=== PATIENT | male | born 1950 | race Caucasian/White ===

== ENCOUNTER 2016-08-11 07:52 | Outpatient (CLI) | payer MEDICARE, OTHER ==
[2015-11-22 18:54] VITALS: BP 142/89
== END 2016-08-11 07:53 ==
LOC: LAB 07:52
PROVIDERS: ATTEND Internal Medicine Interventional Cardiology
DX: I48.0 Paroxysmal atrial fibrillation (principal)
CPT/HCPCS: 36415; 85610

== ENCOUNTER 2016-08-25 07:51 | Outpatient (CLI) | payer MEDICARE, OTHER ==
[2015-11-22 18:54] VITALS: BP 142/89
== END 2016-08-25 08:00 ==
LOC: LAB 07:51
PROVIDERS: ATTEND Internal Medicine Interventional Cardiology
DX: Z51.81 Encounter for therapeutic drug level monitoring (principal); Z79.01 Long term (current) use of anticoagulants; I48.0 Paroxysmal atrial fibrillation
CPT/HCPCS: 36415; 85610

== ENCOUNTER 2016-09-08 09:02 | Outpatient (CLI) | payer MEDICARE, OTHER ==
[2015-11-22 18:54] VITALS: BP 142/89
== END 2016-09-08 09:03 ==
LOC: LAB 09:02
PROVIDERS: ATTEND Internal Medicine Interventional Cardiology
DX: I48.0 Paroxysmal atrial fibrillation (principal)
CPT/HCPCS: 36415; 85610

== ENCOUNTER 2016-09-22 08:02 | Outpatient (CLI) | payer MEDICARE, OTHER ==
[2015-11-22 18:54] VITALS: BP 142/89
== END 2016-09-22 08:03 ==
LOC: LAB 08:02
PROVIDERS: ATTEND Internal Medicine Interventional Cardiology
DX: I48.0 Paroxysmal atrial fibrillation (principal)
CPT/HCPCS: 36415; 85610

== ENCOUNTER 2016-10-13 08:38 | Outpatient (CLI) | payer MEDICARE, OTHER ==
[2015-11-22 18:54] VITALS: BP 142/89
== END 2016-10-13 08:40 ==
LOC: LAB 08:38
PROVIDERS: ATTEND Internal Medicine Interventional Cardiology
DX: Z51.81 Encounter for therapeutic drug level monitoring (principal); Z79.01 Long term (current) use of anticoagulants; I48.0 Paroxysmal atrial fibrillation
CPT/HCPCS: 36415; 85610

== ENCOUNTER 2016-11-10 08:39 | Outpatient (CLI) | payer MEDICARE, OTHER ==
[2015-11-22 18:54] VITALS: BP 142/89
== END 2016-11-10 08:40 ==
LOC: LAB 08:39
PROVIDERS: ATTEND Internal Medicine Interventional Cardiology
DX: Z51.81 Encounter for therapeutic drug level monitoring (principal); Z79.01 Long term (current) use of anticoagulants; I48.0 Paroxysmal atrial fibrillation
CPT/HCPCS: 36415; 85610

== ENCOUNTER 2016-12-08 08:26 | Outpatient (CLI) | payer MEDICARE, OTHER ==
[2015-11-22 18:54] VITALS: BP 142/89
== END 2016-12-08 08:27 ==
LOC: LAB 08:26
PROVIDERS: ATTEND Internal Medicine Interventional Cardiology
DX: Z79.01 Long term (current) use of anticoagulants (principal); Z51.81 Encounter for therapeutic drug level monitoring; I48.0 Paroxysmal atrial fibrillation
CPT/HCPCS: 36415; 85610

== ENCOUNTER 2017-01-12 09:34 | Outpatient (CLI) | payer MEDICARE, OTHER ==
[2015-11-22 18:54] VITALS: BP 142/89
== END 2017-01-12 09:35 ==
LOC: LAB 09:34
PROVIDERS: ATTEND Anesthesiology
DX: I48.0 Paroxysmal atrial fibrillation (principal)
CPT/HCPCS: 36415; 85610

== ENCOUNTER 2017-02-06 08:04 | Outpatient (CLI) | payer MEDICARE, OTHER ==
[2015-11-22 18:54] VITALS: BP 142/89
[2017-02-06 08:56] LABS: eGFR (African) > 60; eGFR (Non-African) > 60
== END 2017-02-06 08:05 ==
LOC: LAB 08:04
PROVIDERS: ATTEND Internal Medicine Interventional Cardiology
DX: I48.0 Paroxysmal atrial fibrillation (principal)
CPT/HCPCS: 36415; 80048; 85610

== ENCOUNTER 2017-03-16 08:54 | Outpatient (CLI) | payer MEDICARE, OTHER ==
[2015-11-22 18:54] VITALS: BP 142/89
== END 2017-03-16 09:07 ==
LOC: LAB 08:54
PROVIDERS: ATTEND Internal Medicine Interventional Cardiology
DX: I48.0 Paroxysmal atrial fibrillation (principal)
CPT/HCPCS: 36415; 85610

== ENCOUNTER 2017-04-19 07:57 | Outpatient (CLI) | payer MEDICARE, OTHER ==
[2015-11-22 18:54] VITALS: BP 142/89
== END 2017-04-19 08:00 ==
LOC: LAB 07:57
PROVIDERS: ATTEND Internal Medicine Interventional Cardiology
DX: I48.0 Paroxysmal atrial fibrillation (principal)
CPT/HCPCS: 36415; 85610

== ENCOUNTER 2017-04-26 07:49 | Outpatient (CLI) | payer MEDICARE, OTHER ==
[2015-11-22 18:54] VITALS: BP 142/89
== END 2017-04-26 07:50 ==
LOC: LAB 07:49
PROVIDERS: ATTEND Internal Medicine Interventional Cardiology
DX: I48.0 Paroxysmal atrial fibrillation (principal)
CPT/HCPCS: 36415; 85610

== ENCOUNTER 2017-05-24 07:44 | Outpatient (CLI) | payer MEDICARE, OTHER ==
[2015-11-22 18:54] VITALS: BP 142/89
== END 2017-05-24 07:50 ==
LOC: LAB 07:44
PROVIDERS: ATTEND Internal Medicine Interventional Cardiology
DX: I48.0 Paroxysmal atrial fibrillation (principal)
CPT/HCPCS: 36415; 85610

== ENCOUNTER 2017-05-31 07:51 | Outpatient (CLI) | payer MEDICARE, OTHER ==
[2015-11-22 18:54] VITALS: BP 142/89
== END 2017-05-31 07:52 ==
LOC: LAB 07:51
PROVIDERS: ATTEND Internal Medicine Interventional Cardiology
DX: I48.0 Paroxysmal atrial fibrillation (principal)
CPT/HCPCS: 36415; 85610

== ENCOUNTER 2017-06-07 07:53 | Outpatient (CLI) | payer MEDICARE, OTHER ==
[2015-11-22 18:54] VITALS: BP 142/89
== END 2017-06-07 07:54 ==
LOC: LAB 07:53
PROVIDERS: ATTEND Internal Medicine Interventional Cardiology
DX: I48.0 Paroxysmal atrial fibrillation (principal)
CPT/HCPCS: 36415; 85610

== ENCOUNTER 2017-06-19 08:01 | Outpatient (CLI) | payer MEDICARE, OTHER ==
[2015-11-22 18:54] VITALS: BP 142/89
== END 2017-06-19 08:02 ==
LOC: LAB 08:01
PROVIDERS: ATTEND Internal Medicine Interventional Cardiology
DX: I48.0 Paroxysmal atrial fibrillation (principal)
CPT/HCPCS: 36415; 85610

== ENCOUNTER 2017-07-19 08:47 | Outpatient (CLI) | payer MEDICARE, OTHER ==
[2015-11-22 18:54] VITALS: BP 142/89
== END 2017-07-19 08:50 ==
LOC: LAB 08:47
PROVIDERS: ATTEND Internal Medicine Interventional Cardiology
DX: Z79.01 Long term (current) use of anticoagulants (principal)
CPT/HCPCS: 36415; 85610

== ENCOUNTER 2017-08-17 09:01 | Outpatient (CLI) | payer MEDICARE, OTHER ==
[2015-11-22 18:54] VITALS: BP 142/89
== END 2017-08-17 09:02 ==
LOC: LAB 09:01
PROVIDERS: ATTEND Internal Medicine Interventional Cardiology
DX: Z79.01 Long term (current) use of anticoagulants (principal)
CPT/HCPCS: 36415; 85610

== ENCOUNTER 2017-09-13 08:08 | Outpatient (CLI) | payer MEDICARE, OTHER ==
[2015-11-22 18:54] VITALS: BP 142/89
== END 2017-09-13 08:10 ==
LOC: LAB 08:08
PROVIDERS: ATTEND Internal Medicine Interventional Cardiology
DX: Z79.01 Long term (current) use of anticoagulants (principal)
CPT/HCPCS: 36415; 85610

== ENCOUNTER 2017-10-11 08:21 | Outpatient (CLI) | payer MEDICARE, OTHER ==
[2015-11-22 18:54] VITALS: BP 142/89
== END 2017-10-11 09:20 ==
LOC: LAB 08:21
PROVIDERS: ATTEND Internal Medicine Interventional Cardiology
DX: Z79.01 Long term (current) use of anticoagulants (principal)
CPT/HCPCS: 36415; 85610

== ENCOUNTER 2017-11-08 08:20 | Outpatient (CLI) | payer MEDICARE, OTHER ==
[2015-11-22 18:54] VITALS: BP 142/89
== END 2017-11-08 08:23 ==
LOC: LAB 08:20
PROVIDERS: ATTEND Internal Medicine Interventional Cardiology
DX: Z79.01 Long term (current) use of anticoagulants (principal)
CPT/HCPCS: 36415; 85610

== ENCOUNTER 2017-11-22 08:28 | Outpatient (CLI) | payer MEDICARE, OTHER ==
[2015-11-22 18:54] VITALS: BP 142/89
== END 2017-11-22 08:30 ==
LOC: LAB 08:28
PROVIDERS: ATTEND Internal Medicine Interventional Cardiology
DX: Z79.01 Long term (current) use of anticoagulants (principal)
CPT/HCPCS: 36415; 85610

== ENCOUNTER 2017-11-29 08:18 | Outpatient (CLI) | payer MEDICARE, OTHER ==
[2015-11-22 18:54] VITALS: BP 142/89
== END 2017-11-29 08:20 ==
LOC: LAB 08:18
PROVIDERS: ATTEND Internal Medicine Interventional Cardiology
DX: Z79.01 Long term (current) use of anticoagulants (principal)
CPT/HCPCS: 36415; 85610

== ENCOUNTER 2017-12-06 08:29 | Outpatient (CLI) | payer MEDICARE, OTHER ==
[2015-11-22 18:54] VITALS: BP 142/89
== END 2017-12-06 08:30 ==
LOC: LAB 08:29
PROVIDERS: ATTEND Internal Medicine Interventional Cardiology
DX: Z79.01 Long term (current) use of anticoagulants (principal)
CPT/HCPCS: 36415; 85610

== ENCOUNTER 2017-12-20 07:54 | Outpatient (CLI) | payer MEDICARE, OTHER ==
[2015-11-22 18:54] VITALS: BP 142/89
== END 2017-12-20 09:56 ==
LOC: LAB 07:54
PROVIDERS: ATTEND Anesthesiology
DX: Z79.01 Long term (current) use of anticoagulants (principal)
CPT/HCPCS: 36415; 85610

== ENCOUNTER 2018-01-03 08:05 | Outpatient (CLI) | payer MEDICARE, OTHER ==
[2015-11-22 18:54] VITALS: BP 142/89
== END 2018-01-03 08:06 ==
LOC: LAB 08:05
PROVIDERS: ATTEND Internal Medicine Interventional Cardiology
DX: Z79.01 Long term (current) use of anticoagulants (principal)
CPT/HCPCS: 36415; 85610

== ENCOUNTER 2018-01-17 08:18 | Outpatient (CLI) | payer MEDICARE, OTHER ==
[2015-11-22 18:54] VITALS: BP 142/89
== END 2018-01-17 08:20 ==
LOC: LAB 08:18
PROVIDERS: ATTEND Internal Medicine Interventional Cardiology
DX: Z79.01 Long term (current) use of anticoagulants (principal)
CPT/HCPCS: 36415; 85610

== ENCOUNTER 2018-02-07 08:11 | Outpatient (CLI) | payer MEDICARE, OTHER ==
[2015-11-22 18:54] VITALS: BP 142/89
== END 2018-02-07 08:13 ==
LOC: LAB 08:11
PROVIDERS: ATTEND Internal Medicine Interventional Cardiology
DX: Z79.01 Long term (current) use of anticoagulants (principal)
CPT/HCPCS: 36415; 85610

== ENCOUNTER 2018-02-21 08:45 | Outpatient (CLI) | payer MEDICARE, OTHER ==
[2015-11-22 18:54] VITALS: BP 142/89
== END 2018-02-21 08:46 ==
LOC: LAB 08:45
PROVIDERS: ATTEND Internal Medicine Interventional Cardiology
DX: Z79.01 Long term (current) use of anticoagulants (principal)
CPT/HCPCS: 36415; 85610

== ENCOUNTER 2018-03-07 08:34 | Outpatient (CLI) | payer MEDICARE, OTHER ==
[2015-11-22 18:54] VITALS: BP 142/89
== END 2018-03-07 08:35 ==
LOC: LAB 08:34
PROVIDERS: ATTEND Internal Medicine Interventional Cardiology
DX: Z79.01 Long term (current) use of anticoagulants (principal)
CPT/HCPCS: 36415; 85610

== ENCOUNTER 2018-03-28 08:22 | Outpatient (CLI) | payer MEDICARE, OTHER ==
[2015-11-22 18:54] VITALS: BP 142/89
== END 2018-03-28 08:23 ==
LOC: LAB 08:22
PROVIDERS: ATTEND Internal Medicine Interventional Cardiology
DX: Z79.01 Long term (current) use of anticoagulants (principal)
CPT/HCPCS: 36415; 85610

== ENCOUNTER 2018-04-11 09:04 | Outpatient (CLI) | payer MEDICARE, OTHER ==
[2015-11-22 18:54] VITALS: BP 142/89
== END 2018-04-11 09:06 ==
LOC: LAB 09:04
PROVIDERS: ATTEND Internal Medicine Interventional Cardiology
DX: Z79.01 Long term (current) use of anticoagulants (principal)
CPT/HCPCS: 36415; 85610

== ENCOUNTER 2018-04-26 09:01 | Outpatient (CLI) | payer MEDICARE, OTHER ==
[2015-11-22 18:54] VITALS: BP 142/89
== END 2018-04-26 09:03 ==
LOC: LAB 09:01
PROVIDERS: ATTEND Internal Medicine Interventional Cardiology
DX: Z79.01 Long term (current) use of anticoagulants (principal)
CPT/HCPCS: 36415; 85610

== ENCOUNTER 2018-05-16 09:35 | Outpatient (CLI) | payer MEDICARE, OTHER ==
[2015-11-22 18:54] VITALS: BP 142/89
== END 2018-05-16 09:36 ==
LOC: LAB 09:35
PROVIDERS: ATTEND Internal Medicine Interventional Cardiology
DX: Z79.01 Long term (current) use of anticoagulants (principal)
CPT/HCPCS: 36415; 85610

== ENCOUNTER 2018-06-14 08:54 | Outpatient (CLI) | payer MEDICARE, OTHER ==
[2015-11-22 18:54] VITALS: BP 142/89
== END 2018-06-14 08:59 | disposition home or self-care (01) ==
LOC: LAB 08:54
PROVIDERS: ATTEND Internal Medicine Interventional Cardiology
DX: Z79.01 Long term (current) use of anticoagulants (principal)
CPT/HCPCS: 36415; 85610

== ENCOUNTER 2018-07-12 08:52 | Outpatient (CLI) | payer MEDICARE, OTHER ==
[2015-11-22 18:54] VITALS: BP 142/89
== END 2018-07-12 14:18 ==
LOC: LAB 08:52
PROVIDERS: ATTEND Internal Medicine Interventional Cardiology
DX: Z79.01 Long term (current) use of anticoagulants (principal); Z51.81 Encounter for therapeutic drug level monitoring
CPT/HCPCS: 36415; 85610

== ENCOUNTER 2018-07-19 08:28 | Outpatient (CLI) | payer MEDICARE, OTHER ==
[2015-11-22 18:54] VITALS: BP 142/89
== END 2018-07-19 08:33 | disposition home or self-care (01) ==
LOC: LAB 08:28
PROVIDERS: ATTEND Internal Medicine Interventional Cardiology
DX: Z79.01 Long term (current) use of anticoagulants (principal); Z51.81 Encounter for therapeutic drug level monitoring
CPT/HCPCS: 36415; 85610

== ENCOUNTER 2018-08-02 09:56 | Outpatient (CLI) | payer MEDICARE, OTHER ==
[2015-11-22 18:54] VITALS: BP 142/89
== END 2018-08-02 10:08 ==
LOC: LAB 09:56
PROVIDERS: ATTEND Internal Medicine Interventional Cardiology
DX: Z79.01 Long term (current) use of anticoagulants (principal); Z51.81 Encounter for therapeutic drug level monitoring
CPT/HCPCS: 36415; 85610

== ENCOUNTER 2018-08-23 08:56 | Outpatient (CLI) | payer MEDICARE, OTHER ==
[2015-11-22 18:54] VITALS: BP 142/89
== END 2018-08-23 08:58 ==
LOC: LAB 08:56
PROVIDERS: ATTEND Internal Medicine Interventional Cardiology
DX: Z79.01 Long term (current) use of anticoagulants (principal)
CPT/HCPCS: 36415; 85610

== ENCOUNTER 2018-08-31 08:57 | Outpatient (CLI) | payer MEDICARE, OTHER ==
[2015-11-22 18:54] VITALS: BP 142/89
== END 2018-08-31 09:00 ==
LOC: LAB 08:57
PROVIDERS: ATTEND Anesthesiology
DX: Z79.01 Long term (current) use of anticoagulants (principal)
CPT/HCPCS: 36415; 85610

== ENCOUNTER 2018-09-12 09:04 | Outpatient (CLI) | payer MEDICARE, OTHER ==
[2015-11-22 18:54] VITALS: BP 142/89
== END 2018-09-12 09:06 ==
LOC: LAB 09:04
PROVIDERS: ATTEND Internal Medicine Interventional Cardiology
DX: Z79.01 Long term (current) use of anticoagulants (principal)
CPT/HCPCS: 36415; 85610

== ENCOUNTER 2018-10-10 08:45 | Outpatient (CLI) | payer MEDICARE, OTHER ==
[2015-11-22 18:54] VITALS: BP 142/89
== END 2018-10-10 08:46 ==
LOC: LAB 08:45
PROVIDERS: ATTEND Internal Medicine Interventional Cardiology
DX: Z79.01 Long term (current) use of anticoagulants (principal)
CPT/HCPCS: 36415; 85610

== ENCOUNTER 2018-11-07 08:37 | Outpatient (CLI) | payer MEDICARE, OTHER ==
[2015-11-22 18:54] VITALS: BP 142/89
== END 2018-11-07 09:15 ==
LOC: LAB 08:37
PROVIDERS: ATTEND Internal Medicine Interventional Cardiology
DX: Z79.01 Long term (current) use of anticoagulants (principal)
CPT/HCPCS: 36415; 85610

== ENCOUNTER 2018-12-12 08:32 | Outpatient (CLI) | payer MEDICARE, OTHER ==
[2015-11-22 18:54] VITALS: BP 142/89
== END 2018-12-12 08:33 ==
LOC: LAB 08:32
PROVIDERS: ATTEND Internal Medicine Interventional Cardiology
DX: Z79.01 Long term (current) use of anticoagulants (principal)
CPT/HCPCS: 36415; 85610

== ENCOUNTER 2018-12-20 08:54 | Outpatient (CLI) | payer MEDICARE, OTHER ==
[2015-11-22 18:54] VITALS: BP 142/89
== END 2018-12-20 08:56 ==
LOC: LAB 08:54
PROVIDERS: ATTEND Internal Medicine Interventional Cardiology
DX: Z79.01 Long term (current) use of anticoagulants (principal)
CPT/HCPCS: 36415; 85610

== ENCOUNTER 2019-01-30 08:51 | Outpatient (CLI) | payer MEDICARE, OTHER ==
[2015-11-22 18:54] VITALS: BP 142/89
== END 2019-01-30 08:53 ==
LOC: LAB 08:51
PROVIDERS: ATTEND Internal Medicine Interventional Cardiology
DX: Z79.01 Long term (current) use of anticoagulants (principal); Z51.81 Encounter for therapeutic drug level monitoring
CPT/HCPCS: 36415; 85610

== ENCOUNTER 2019-02-13 09:20 | Outpatient (CLI) | payer MEDICARE, OTHER ==
[2015-11-22 18:54] VITALS: BP 142/89
== END 2019-02-13 09:23 ==
LOC: LAB 09:20
PROVIDERS: ATTEND Internal Medicine Interventional Cardiology
DX: Z79.01 Long term (current) use of anticoagulants (principal); Z51.81 Encounter for therapeutic drug level monitoring
CPT/HCPCS: 36415; 85610

== ENCOUNTER 2019-03-27 08:29 | Outpatient (CLI) | payer MEDICARE, OTHER ==
[2015-11-22 18:54] VITALS: BP 142/89
== END 2019-03-27 08:32 ==
LOC: LAB 08:29
PROVIDERS: ATTEND Internal Medicine Interventional Cardiology
DX: Z51.81 Encounter for therapeutic drug level monitoring (principal); Z79.01 Long term (current) use of anticoagulants
CPT/HCPCS: 36415; 85610

== ENCOUNTER 2019-04-24 08:48 | Outpatient (CLI) | payer MEDICARE, OTHER ==
[2015-11-22 18:54] VITALS: BP 142/89
== END 2019-04-24 08:50 ==
LOC: LAB 08:48
PROVIDERS: ATTEND Internal Medicine Interventional Cardiology
DX: Z51.81 Encounter for therapeutic drug level monitoring (principal); Z79.01 Long term (current) use of anticoagulants
CPT/HCPCS: 36415; 85610

== ENCOUNTER 2019-05-23 09:05 | Outpatient (CLI) | payer MEDICARE, OTHER ==
[2015-11-22 18:54] VITALS: BP 142/89
== END 2019-05-23 09:10 ==
LOC: LAB 09:05
PROVIDERS: ATTEND Internal Medicine Interventional Cardiology
DX: Z51.81 Encounter for therapeutic drug level monitoring (principal); Z79.01 Long term (current) use of anticoagulants
CPT/HCPCS: 36415; 85610

== ENCOUNTER 2019-06-19 08:48 | Outpatient (CLI) | payer MEDICARE, OTHER ==
[2015-11-22 18:54] VITALS: BP 142/89
== END 2019-06-19 08:53 ==
LOC: LAB 08:48
PROVIDERS: ATTEND Internal Medicine Interventional Cardiology
DX: Z51.81 Encounter for therapeutic drug level monitoring (principal); Z79.01 Long term (current) use of anticoagulants
CPT/HCPCS: 36415; 85610